=== PATIENT | female | born 1940 | race Caucasian/White ===

== ENCOUNTER 2018-05-09 07:11 | Day surgery (SDC) | payer OTHER ==
[~2018-05-09] VITALS: Ht 134.6 cm; Wt 63.5 kg
[2018-05-09 07:43] VITALS: BP 140/71
[2018-05-09 10:30] VITALS: BP 133/61
== END 2018-05-09 10:35 | disposition home or self-care (01) ==
LOC: GI 07:11 → OR 09:30 → GI 09:30
PROVIDERS: Internal Medicine Gastroenterology
PROC: 0DBG8ZZ Excision of Left Large Intestine, Via Natural or Artificial Opening Endoscopic (ICD-10-PCS; principal; 2018-05-09 08:30)
DX: R19.5 Other fecal abnormalities (principal); K64.8 Other hemorrhoids; D12.4 Benign neoplasm of descending colon; K59.00 Constipation, unspecified; Z80.0 Family history of malignant neoplasm of digestive organs; Z68.37 Body mass index [BMI] 37.0-37.9, adult; Z79.82 Long term (current) use of aspirin
CPT/HCPCS: 45378; J1200; J1610; J2250; J2310; J3010; J3490